=== PATIENT | male | born 1985 | race Caucasian/White ===

== ENCOUNTER 2019-04-28 19:03 | Emergency (ER) | payer MEDICAID, OTHER ==
--- NOTE | 2019-04-28 19:27 | EDM.PDOC ---
ED HPI GENERAL MEDICAL PROBLEM - General Chief Complaint: Lower Extremity Injury/Pain Time Seen by Provider: 04/28/19 19:25 Source of Information: Reports: Patient, Family, RN Notes Reviewed History Limitations: Reports: No Limitations - History of Present Illness INITIAL COMMENTS - FREE TEXT/NARRATIVE: 34-year-old gentleman presents emergency department today complaint of left ankle pain, he injured himself earlier today when he stepped off the curb twisted his ankle inward and now having significant pain and difficult for him to bear weight Treatments [facility]: Reports: Other (see below) Other Treatments [facility]: none - Related Data Allergies Allergy/AdvReac Type Severity Reaction Status Date / Time No Known Allergies Allergy Verified 04/28/19 19:35 Home Meds: Home Meds Albuterol [Ventolin HFA] 2 puff INH Q4HR PRN 08/25/18 [History] Omeprazole Magnesium [Prilosec Otc] 20 mg PO DAILY 08/25/18 [History] buPROPion [buPROPion XL] 300 mg PO DAILY 08/25/18 [History] Sertraline [Zoloft] 100 mg PO BEDTIME 04/28/19 [History] Past Medical History - Past Health History Medical/Surgical History: Denies Medical/Surgical History Social & Family History - Caffeine Use Caffeine Use: Reports: Soda Review of Systems - Review of Systems Review Of Systems: See Below Musculoskeletal: Reports: Joint Pain (Left ankle pain) Neurological: Reports: No Symptoms ED EXAM, GENERAL - Physical Exam Exam: See Below Free Text/Narrative:: Examination left ankle I do appreciate some edema around the lateral malleolus he is tender to palpation around the lateral malleolus does not tolerate drawer test or a tilt test to the joint radial pulses +2 no ecchymosis noted sensation is intact Course - Vital Signs Last Recorded V/S: Last Vital Signs Temp 97.2 F 04/28/19 19:37 Pulse 88 04/28/19 19:37 Resp 12 04/28/19 19:37 BP 120/72 04/28/19 19:37 Pulse Ox 98 04/28/19 19:37 Departure - Departure Time of Disposition: 20:18 Disposition: Home, Self-Care 01 Condition: Fair Clinical Impression: Left ankle sprain Qualifiers: Encounter type: initial encounter Involved ligament of ankle: unspecified ligament Qualified Code(s): S93.402A - Sprain of unspecified ligament of left ankle, initial encounter - Discharge Information Referrals: PCP,None [Primary Care Provider] - Forms: ED Department Discharge, ED Return to Work/School Form Additional Instructions: Continue to use the boot for pain and comfort, please follow-up with your primary care in the next 2-3 days for reevaluation, use Tylenol or Motrin as needed for pain control - Assessment/Plan Plan: Assessment Acuity = acute Site and laterality = left ankle sprain Etiology = secondary twisting injury Manifestations = [none Location of injury = Home Lab values = x-ray shows no fracture Plan He is placed in a cam walker boot Tylenol or Motrin as needed for pain control, follow-up with primary care in the next 2-3 days for reevaluation work note provided This note was dictated using [employer] voice recognition software please call with any questions on syntax or grammar.
--- NOTE | 2019-04-28 20:06 | CRLCR ---
INDICATION: Injury and pain TECHNIQUE: Left ankle 3 views COMPARISON: None FINDINGS: Bones: Alignment is normal. No fractures or bone lesions. Joint spaces: Unremarkable. Soft tissues: There is lateral soft tissue swelling. Dictated by: Rusty Dorman MD @ 04/28/2019 20:03:32 (Electronically Signed)
== END 2019-04-28 20:34 | disposition home or self-care (01) ==
LOC: JP.ED 19:03
DX: S93.402A Sprain of unspecified ligament of left ankle, initial encounter (principal); W10.1XXA Fall (on)(from) sidewalk curb, initial encounter; Z79.899 Other long term (current) drug therapy
CPT/HCPCS: 73610-LT; 99283-25

== ENCOUNTER 2020-11-22 09:48 | Emergency (ER) | payer MEDICAID, OTHER ==
[2020-11-22] MEDS ORDERED: LORazepam 0.5 MG Tab PO ONE (10:22)
[2020-11-22] MEDS ORDERED: Aspirin 81 MG Tab.Chew PO ONE (10:49)
--- NOTE | 2020-11-22 11:10 | CR ---
CHEST: 2 view CLINICAL HISTORY:Right-sided chest pain COMPARISON:None FINDINGS: The heart size, pulmonary vascularity and hilar structures are normal. No infiltrate effusion or pneumothorax is seen. IMPRESSION: No acute cardiopulmonary process.
[2020-11-22] MEDS ORDERED: Ketorolac 60 MG/2 ML SDV IM ONE (11:12)
--- NOTE | 2020-11-22 11:24 | EDM.PDOC ---
ED HPI GENERAL MEDICAL PROBLEM - General Chief Complaint: Respiratory Problem Stated Complaint: CHEST PAIN, SOB, R ARM PAIN, DIZZY Time Seen by Provider: 11/22/20 10:10 Source of Information: Reports: Patient History Limitations: Reports: No Limitations - History of Present Illness INITIAL COMMENTS - FREE TEXT/NARRATIVE: pt works for [employer] and did some lifting nd pushing this am. He began to feel sob and had chest pain in the rt upper chest. He hurt when he took a deep breath. He did feel anxious and has a history of anxiety attacks but he has not had one for a long time. Onset: Today Duration: Hour(s): Location: Reports: Chest Associated Symptoms: Reports: Chest Pain, Shortness of Breath, Other (hurts to take a deep breath. ) - Related Data Allergies Allergy/AdvReac Type Severity Reaction Status Date / Time No Known Allergies Allergy Verified 11/22/20 10:03 Home Meds: Home Meds Omeprazole Magnesium [Prilosec Otc] 20 mg PO DAILY 08/25/18 [History] Sertraline [Zoloft] 100 mg PO DAILY 11/22/20 [History] Past Medical History - Past Health History Medical/Surgical History: Denies Medical/Surgical History HEENT History: Reports: Impaired Vision Gastrointestinal History: Reports: GERD Psychiatric History: Reports: Anxiety, Panic Attack - Infectious Disease History Infectious Disease History: Reports: Chicken Pox - Past Surgical History Head Surgeries/Procedures: Reports: None HEENT Surgical History: Reports: Tonsillectomy GI Surgical History: Reports: None Dermatological Surgical History: Reports: None Social & Family History - Tobacco Use Tobacco Use Status *Q: Former Tobacco User Used Tobacco, but Quit: Yes Month/Year Tobacco Last Used: 2010 Second Hand Smoke Exposure: No - Caffeine Use Caffeine Use: Reports: Soda - Recreational Drug Use Recreational Drug Use: No ED ROS GENERAL - Review of Systems Review Of Systems: See Below Constitutional: Reports: No Symptoms HEENT: Reports: No Symptoms Respiratory: Reports: Shortness of Breath Cardiovascular: Reports: Chest Pain, Other (pain in the mid chest and rt upper chest. ) Endocrine: Reports: No Symptoms GI/Abdominal: Reports: No Symptoms : Reports: No Symptoms Musculoskeletal: Reports: Other (pt feels like his muscles are tight in the rt upper chest area. ) Skin: Reports: No Symptoms ED EXAM, GENERAL - Physical Exam Exam: See Below Free Text/Narrative:: pt arrived with pain in the rt upper chest area. He is feeling sob and it hurts when he takes a deep breath. Exam Limited By: No Limitations General Appearance: Alert, Anxious, Moderate Distress Ears: Normal TMs Nose: Normal Inspection Throat/Mouth: Normal Inspection Head: Atraumatic Neck: Normal Inspection Respiratory/Chest: No Respiratory Distress Cardiovascular: Regular Rate, Rhythm GI/Abdominal: Soft, Non-Tender (Male) Exam: Deferred Rectal (Males) Exam: Deferred Back Exam: Normal Inspection Extremities: Normal Inspection Neurological: Alert, Oriented, Normal Cognition Psychiatric: Anxious Course - Vital Signs Last Recorded V/S: Last Vital Signs Temp 36.5 C 11/22/20 10:09 Pulse 75 11/22/20 10:09 Resp 16 11/22/20 10:09 BP 121/84 11/22/20 10:09 Pulse Ox 98 11/22/20 10:09 - Orders/Labs/Meds Orders: Active Orders 24 hr Category Date Time Status Cardiac Monitoring [RC] .As Directed Care 11/22/20 10:05 Active EKG Documentation Completion [RC] ASDIRECTED Care 11/22/20 09:57 Active EKG 12 Lead [EK] Routine Ther 11/22/20 09:57 Ordered Labs: Laboratory Tests 11/22/20 11/22/20 11/22/20 Range/Units 10:25 10:25 10:31 D-Dimer, Quantitative 180.35 (0.0-500.0) ng/mL Sodium (140-148) mmol/L Potassium (3.6-5.2) mmol/L Chloride (100-108) mmol/L Carbon Dioxide (21-32) mmol/L Anion Gap (5.0-14.0) mmol/L BUN (7-18) mg/dL Creatinine (0.8-1.3) mg/dL Est Cr Clr Drug Dosing mL/min Estimated GFR (MDRD) (>60) Glucose (74-106) mg/dL Calcium (8.5-10.1) mg/dL Magnesium 1.9 (1.8-2.4) mg/dL Total Bilirubin (0.2-1.0) mg/dL AST (15-37) U/L ALT (12-78) U/L Alkaline Phosphatase (46-116) U/L Troponin I < 0.017 (0.000-0.056) ng/mL Total Protein (6.4-8.2) g/dL Albumin (3.4-5.0) g/dL Globulin (2.3-3.5) g/dL Albumin/Globulin Ratio (1.2-2.2) Urine Color Yellow (YELLOW) Urine Appearance Clear (CLEAR) Urine pH 5.0 (5.0-8.0) Ur Specific [place] 1.025 (1.008-1.030) Urine Protein Negative (NEGATIVE) mg/dL Urine Glucose (UA) Negative (NEGATIVE) mg/dL Urine Ketones Negative (NEGATIVE) mg/dL Urine Occult Blood Negative (NEGATIVE) Urine Nitrite Negative (NEGATIVE) Urine Bilirubin Negative (NEGATIVE) Urine Urobilinogen 0.2 (0.2-1.0) EU/dL Ur Leukocyte Esterase Negative (NEGATIVE) Urine RBC Not seen (0-5) Urine WBC Not seen (0-5) Ur Epithelial Cells Not seen Amorphous Sediment Few Urine Bacteria Not seen Urine Mucus Not seen 11/22/20 Range/Units 11:25 D-Dimer, Quantitative (0.0-500.0) ng/mL Sodium 140 (140-148) mmol/L Potassium 4.6 (3.6-5.2) mmol/L Chloride 105 (100-108) mmol/L Carbon Dioxide 25 (21-32) mmol/L Anion Gap 14.6 H (5.0-14.0) mmol/L BUN 18 (7-18) mg/dL Creatinine 1.0 (0.8-1.3) mg/dL Est Cr Clr Drug Dosing 107.47 mL/min Estimated GFR (MDRD) > 60 (>60) Glucose 76 (74-106) mg/dL Calcium 9.5 (8.5-10.1) mg/dL Magnesium (1.8-2.4) mg/dL Total Bilirubin 1.5 H (0.2-1.0) mg/dL AST 29 (15-37) U/L ALT 59 (12-78) U/L Alkaline Phosphatase 114 (46-116) U/L Troponin I (0.000-0.056) ng/mL Total Protein 6.8 (6.4-8.2) g/dL Albumin 3.8 (3.4-5.0) g/dL Globulin 3.0 (2.3-3.5) g/dL Albumin/Globulin Ratio 1.3 (1.2-2.2) Urine Color (YELLOW) Urine Appearance (CLEAR) Urine pH (5.0-8.0) Ur Specific [place] (1.008-1.030) Urine Protein (NEGATIVE) mg/dL Urine Glucose (UA) (NEGATIVE) mg/dL Urine Ketones (NEGATIVE) mg/dL Urine Occult Blood (NEGATIVE) Urine Nitrite (NEGATIVE) Urine Bilirubin (NEGATIVE) Urine Urobilinogen (0.2-1.0) EU/dL Ur Leukocyte Esterase (NEGATIVE) Urine RBC (0-5) Urine WBC (0-5) Ur Epithelial Cells Amorphous Sediment Urine Bacteria Urine Mucus Meds: Medications Discontinued Medications Generic Name Dose Route Start Last Admin Trade Name Freq PRN Reason Stop Dose Admin Aspirin 324 mg 11/22/20 10:49 11/22/20 10:53 Aspirin PO 11/22/20 10:50 324 mg ONETIME ONE Administration Ketorolac Tromethamine 60 mg 11/22/20 11:12 11/22/20 11:17 Toradol IM 11/22/20 11:13 60 mg ONETIME ONE Administration Lorazepam 0.5 mg 11/22/20 10:22 11/22/20 10:25 Ativan PO 11/22/20 10:23 0.5 mg ONETIME ONE Administration - Re-Assessments/Exams Free Text/Narrative Re-Assessment/Exam: 11/22/20 12:14 mag and electrolytes normal, trop normal. Departure - Departure Time of Disposition: 12:09 Disposition: Home, Self-Care 01 Condition: Fair Clinical Impression: Ventricular beat, premature, Chest wall discomfort - Discharge Information Referrals: PCP,None [Primary Care Provider] - Forms: ED Department Discharge Care Plan Goals: heat and cool packs to the rt ant chest, motrin 600mg qid for chest discom,kya, appt with regular physian in [place] to follow up on the heart irregularity, and pr interval being short. Sent a copy of his labs and ekg with the pt for his visit at [place]. Sepsis Event Note (ED) - Evaluation Sepsis Screening Result: No Definite Risk - Focused Exam Vital Signs: Vital Signs Temp Pulse Resp BP Pulse Ox 11/22/20 10:09 36.5 C 75 16 121/84 98 11/22/20 10:04 36.5 C 75 16 98 - My Orders Last 24 Hours: My Active Orders 11/22/20 09:57 EKG Documentation Completion [RC] ASDIRECTED EKG 12 Lead [EK] Routine 11/22/20 10:05 Cardiac Monitoring [RC] .As Directed - Assessment/Plan Last 24 Hours: My Active Orders 11/22/20 09:57 EKG Documentation Completion [RC] ASDIRECTED EKG 12 Lead [EK] Routine 11/22/20 10:05 Cardiac Monitoring [RC] .As Directed
== END 2020-11-22 12:23 | disposition home or self-care (01) ==
LOC: JP.ED 09:48
DX: I49.3 Ventricular premature depolarization (principal); K21.9 Gastro-esophageal reflux disease without esophagitis; Z79.899 Other long term (current) drug therapy; Z87.891 Personal history of nicotine dependence
CPT/HCPCS: 36415; 71046; 71046-26; 80053; 81001; 83735; 84484; 85379; 93005; 93010; 96372; 99285-25; A9270-GY; J1885

== ENCOUNTER 2022-07-02 10:18 | Day surgery (SDC) | payer OTHER, MEDICAID ==
[2022-07-02] MEDS ORDERED: Ketamine 500 MG/5 ML MDV IV ONE (10:26)
[2022-07-02] MEDS ORDERED: HYDROmorphone 1 MG/ML Syringe IVPUSH ONE ×2 (10:26→11:31)
[2022-07-02] MEDS ORDERED: Diphtheria,Pertussis(Acell),Tetanus Vaccine 0.5 ML Syringe IM ONE (10:36)
[2022-07-02] MEDS ORDERED: Ondansetron 4 MG/2 ML SDV ONE (11:44)
[2022-07-02] MEDS ORDERED: Succinylcholine 200 MG/10 ML MDV ONE (11:44)
[2022-07-02] MEDS ORDERED: Rocuronium 50 MG/5 ML Vial ONE (11:44)
[2022-07-02] MEDS ORDERED: fentaNYL 250 MCG/5 ML SDV ONE (11:44)
[2022-07-02] MEDS ORDERED: Neostigmine Methylsulfate 1 MG/ML 5 ML Syringe ONE (11:44)
[2022-07-02] MEDS ORDERED: Dexamethasone 4 MG/ML SDV ONE (11:44)
[2022-07-02] MEDS ORDERED: Glycopyrrolate 0.2 MG/ML 5 ML MDV ONE (11:44)
[2022-07-02] MEDS ORDERED: Propofol 200 MG/20 ML SDV ONE (11:44)
[2022-07-02] MEDS ORDERED: Bupivacaine 0.5% 50 ML MDV ONE (11:57)
[2022-07-02] MEDS ORDERED: ceFAZolin 2 GM in Sodium Chloride 0.9% 50 ML IV ONE (12:00)
[2022-07-02] MEDS ORDERED: Ondansetron 4 MG/2 ML SDV IVPUSH ONE (12:19)
[2022-07-02 12:41] LABS: ESTIMATED GFR 89 mL/min (>60)
== END 2022-07-02 16:08 ==
LOC: JP.ED 10:18 → JP.SDS 12:40 → JP.ED 16:08
PROVIDERS: ATTEND Specialist
DX: S67.21XA Crushing injury of right hand, initial encounter (principal); S61.411A Laceration without foreign body of right hand, initial encounter; K21.9 Gastro-esophageal reflux disease without esophagitis; F41.9 Anxiety disorder, unspecified; F32.A Depression, unspecified; Z98.890 Other specified postprocedural states; Z20.822 Contact with and (suspected) exposure to COVID-19; W23.1XXA Caught, crushed, jammed, or pinched between stationary objects, initial encounter
CPT/HCPCS: 26951; 36415; 73130; 80053; 85027; 87635; 90471; 90715; 96365; 96375; 96376; 99283; J0330; J0690; J1100; J1170; J2405; J2704; J3010; J3490; 26952; 99203; J2710; U0002

== ENCOUNTER 2023-04-02 11:56 | Emergency (ER) | payer MEDICAID, OTHER ==
[2023-04-02] MEDS ORDERED: Sodium Chloride 0.9% 1,000 ML IV SCH (12:30)
[2023-04-02] MEDS: Sodium Chloride 0.9% 10 ML Syringe FLUSH PRN ×2 (13:10→14:11)
[2023-04-02] MEDS ORDERED: Sodium Chloride 0.9% 50 ML IV ONE (13:11)
[2023-04-02] MEDS ORDERED: Iopamidol 612 MG/ML 100 ML Bottle IV SCH (13:15)
== END 2023-04-02 16:35 | disposition home or self-care (01) ==
LOC: EEVIPCON 11:56 → JP.ED 11:56
DX: S20.229A Contusion of unspecified back wall of thorax, initial encounter (principal); S10.93XA Contusion of unspecified part of neck, initial encounter; V80.010A Animal-rider injured by fall from or being thrown from horse in noncollision accident, initial encounter
CPT/HCPCS: 71260; 72125; 74177; 76377; 99283; J3490; J7030; Q9967